=== PATIENT | male | born 1955 | race Caucasian/White ===

== ENCOUNTER 2018-03-06 00:22 | Inpatient (IN) | payer OTHER ==
[2018-03-06] VITALS (16 sets, daily range): BP systolic 103–155; BP diastolic 56–97
[~2018-03-06] VITALS: Ht 170.2 cm; Wt 86.6 kg
[2018-03-06 00:52] LABS: ABSOLUTE BASOPHILS 0.1 thou/uL (0.0-0.2); ABSOLUTE EOSINOPHILS 0.1 thou/uL (0.0-0.7); ABSOLUTE LYMPHOCYTES 1.9 thou/uL (0.8-5.3); ABSOLUTE MONOCYTES 0.9 thou/uL (0.0-1.2); ABSOLUTE NEUTROPHILS 6.6 thou/uL (1.6-8.1); BASOPHILS 0.7 %; EOSINOPHILS 1.5 %; HEMATOCRIT 41.7 % (42.0-52.0); HEMOGLOBIN 14.2 gm/dL (14.0-18.0); LYMPHOCYTES 19.8 %; MCH 31.1 pg (26.0-34.0); MCV 91.7 fL (80.0-100.0); MONOCYTES 9.1 %; MPV 7.8 fl. (7.2-11.1); NUCLEATED RBCS 0 /100WBC; PLATELET COUNT* 252 thou/uL (150-400); POLYS 68.9 %; RBC 4.55 mil/uL (4.50-6.00); RDW-CV 12.8 % (10.5-14.5); WBC 9.6 thou/uL (4.0-11.0)
[2018-03-06 01:05] LABS: ANION GAP 10 mmol/L (7-16); BUN 25 mg/dL (7-18); CALCIUM 8.9 mg/dL (8.5-10.1); CHLORIDE 105 mmol/L (98-107); CO2 27 mmol/L (21-32); CREATININE 1.6 mg/dL (0.6-1.3); GLUCOSE 163 mg/dL (70-99); POTASSIUM 3.7 mmol/L (3.5-5.1); SODIUM 142 mmol/L (136-145)
[2018-03-06 01:07] LABS: PROTIME 9.8 Seconds (9.20-11.50)
[2018-03-06 01:16] LABS: ALBUMIN 3.6 g/dL (3.4-5.0); ALKALINE PHOSPHATASE 58 U/L (46-116); NT-PRO BRAIN NAT PEPTIDE 18 pg/mL (<300); SGOT 27 U/L (15-37); SGPT 37 U/L (30-65); TOTAL BILIRUBIN 0.2 mg/dL (<0.1-1.0); TOTAL PROTEIN 7.1 g/dL (6.4-8.2); TROPONIN-I LEVEL <0.06 ng/mL (<0.06)
--- NOTE | 2018-03-06 03:00 | NUR ---
PATIENT ARRIVED TO THE UNIT @240. PT VS WNL. DR. LANCASTER IN ROOM. PT HAS ACHING CHEST PAIN OF 2-3. RIGHT GROIN SITE HAS MINIMAL DRAINAGE. PULSES 2+, CAPILLARY REFILL <3, PT LEG KEPT STRAIGHT. RECIEVED BEDSIDE REPORT. SPOKE WITH HIS @ BEDSIDE. UPDATED ON CARE OF PLAN, SHE VOICED UNDERSTANDING. WILL CONTINUE TO MONITOR CLOSELY.
[2018-03-06 05:57] LABS: ABSOLUTE LYMPHOCYTES 1.1 thou/uL (0.8-5.3); EOSINOPHILS 0.1 %; HEMOGLOBIN 13.1 gm/dL (14.0-18.0); NUCLEATED RBCS 0 /100WBC; PLATELET COUNT* 242 thou/uL (150-400)
[2018-03-06 05:59] LABS: ABSOLUTE BASOPHILS 0.1 thou/uL (0.0-0.2); ABSOLUTE MONOCYTES 0.9 thou/uL (0.0-1.2); ABSOLUTE NEUTROPHILS 8.9 thou/uL (1.6-8.1); BASOPHILS 0.5 %; MCH 30.9 pg (26.0-34.0); MCHC 33.7 g/dL (28.0-37.0); MCV 91.8 fL (80.0-100.0); MONOCYTES 8.3 %; MPV 7.6 fl. (7.2-11.1); POLYS 81.1 %; RBC 4.24 mil/uL (4.50-6.00); RDW-CV 12.7 % (10.5-14.5)
[2018-03-06 06:06] LABS: ANION GAP 10 mmol/L (7-16); BUN 25 mg/dL (7-18); CALCIUM 9.2 mg/dL (8.5-10.1); CHLORIDE 106 mmol/L (98-107); CO2 24 mmol/L (21-32); CREATININE 1.1 mg/dL (0.6-1.3); GLUCOSE 137 mg/dL (70-99); POTASSIUM 4.1 mmol/L (3.5-5.1); SODIUM 140 mmol/L (136-145)
[2018-03-06 06:13] LABS: ALBUMIN 3.3 g/dL (3.4-5.0); ALKALINE PHOSPHATASE 51 U/L (46-116); CHOLESTEROL 226 mg/dL (<200); HDL CHOLESTEROL 41 mg/dL (>40); LDL CHOLESTEROL 130 mg/dL (<100); SGOT 305 U/L (15-37); SGPT 64 U/L (30-65); TC:HDL 5.5 Ratio (Not establshd); TOTAL BILIRUBIN 0.3 mg/dL (<0.1-1.0); TOTAL PROTEIN 6.5 g/dL (6.4-8.2); TRIGLYCERIDE 278 mg/dL (<150); VLDL 56 mg/dL (<40)
[2018-03-06 06:36] LABS: SERUM ASSESSMENT Clear
--- NOTE | 2018-03-06 07:44 | NUR ---
PATIENT CONTINUES TO PROGRESS TOWARDS GOALS. VOICED NO PAIN. RIGHT GROIN SITE INTACT, HEMORRHAGE FREE, PULSES 2+. PT HAS NO VOICED CONCERNS AT THIS TIME. URINE OUTPUT ADEQUATE. BP AND HR HAVE BEEN RUNNING LOW. HR 58-60. PT CONTINUES WITH NS @ 100. ANGIO OFF. WILL CONTINUE TO MONITOR.
--- NOTE | 2018-03-06 10:12 | NUR ---
AT 0900 PT OFF BEDREST. UPON STARTING TO MOVE PT HAD 20 BEAT RUN OF VTACH. PT ASSYMPTOMATIC. CARDIOLOGY NOTIFIED. AFTER SITTING IN CHAIR PT C/O OF FEELING DIZZY AND OF VISUAL DISTURBANCES. HR 49-50. CARDIOLOGY NOTIFIED. NO ORDERS RECEIVED AT THIS TIME. PT PLACED BACK INTO BED WITH HEAD LOWERED AROUND 45 DEGREES. PT REPORTS FEELING BETTER. WILL CONTINUE TO MONITOR. CARDIOLOGY ORDERS TO HOLD BETA BLOCKERS.
--- NOTE | 2018-03-06 10:40 | EKG ---
[place] [address] ELECTROCARDIOGRAM REPORT Name: CECELIA CARMONA Room: [address] IN .R.#: [id number] Admission: 03/06/18 Attend Phys: Celestine Mullen MD, Discharge: Date of : 57 Report #: [id number] THIS REPORT FOR: //name// [facility] ED Test Date: 2018-03-06 Test Time: 00:35:54 Pat Name: CECELIA CARMONA Department: Room: Gender: M Rental Sales Representative: : 1955 Requested By: Betina Humphrey Order Number: [id number] MD: Bhanu Maier Measurements Intervals Mobile Rate: 65 P: 71 DC: 194 QRS: 40 QRSD: 96 T: 84 QT: 374 QTc: 389 Interpretive Statements Sinus rhythm Inferoposterior infarct, acute (RCA) Lateral leads are also involved Probable RV involvement, suggest recording right precordial leads No previous ECG available for comparison Electronically Signed On 03-06-2018 10:40:37 CDT by Bhanu Maier [email or web address] <ELECTRONICALLY SIGNED> By: Bhanu Maier MD, [facility] 03/06/18 1040 0035 0035 Bhanu Maier MD, [facility] /EPI
--- NOTE | 2018-03-06 10:41 | EKG ---
[place] [address] ELECTROCARDIOGRAM REPORT Name: CCEELIA CARMONA Edgar Room: [address] ADM IN M.R.#: [id number] Admission: 03/06/18 Attend Phys: Celestine Mullen MD, Discharge: Date of : 57 Report #: [id number] THIS REPORT FOR: //name// [facility] Test Date: 2018-03-06 Test Time: 07:37:32 Pat Name: CECELIA CARMONA Department: Room: [address] Gender: M Train Engineer: [facility] : 1955 Requested By: Celestine Mullen Order Number: [id number] Reading MD: Bhanu Maier Measurements Intervals [place] Rate: 58 P: 51 SD: 191 QRS: -43 QRSD: 94 T: 58 QT: 409 QTc: 402 Interpretive Statements Sinus rhythm Left axis deviation Abnormal R-wave progression, early transition Nonspecific T abnrm, anterolateral leads ST elevation, consider anterior injury Electronically Signed On 03-06-2018 10:41:24 CDT by Bhanu Maier [email or web address] <ELECTRONICALLY SIGNED> By: Bhanu Maier MD, [facility] 03/06/18 1041 0737 Bhanu Maier MD, [facility] /EPI
--- NOTE | 2018-03-06 19:03 | NUR ---
CARVEDILOL HELD HR IN 50'S. PT SITTING IN CHAIR THIS EVENING. MYNOR ALVARADO. PT TOLERATING HEART HEALTHY DIET. PT C/O OF HEADACHE THIS AFTERNOON 10/22. TYLENOL ADMININSTERED PER EMAR. REASSESSMENT PAIN 0.
--- NOTE | 2018-03-06 20:10 | NUR ---
ASSUMED CARE OF PT FROM TOMASZ PLATT; PT A+O*4, SITTING UP IN BED, NO APPARENT DISTRESS. SATS 97 RA, BP NORMOTENSIVE, HR 50s, R GROIN DRSG C/D/I. SITE BRUISED, NO EDEMA, SOFT AND SUPPLE. PEDAL PULSES 2+. ABD ROUND AND FIRM, PT STATES HE FEELS HE MIGHT BE GETTING CONSTIPATED. CALL LIGHT IN REACH.
[2018-03-07] VITALS (14 sets, daily range): BP systolic 90–118; BP diastolic 9–61
--- NOTE | 2018-03-07 08:53 | NUR ---
9435 ASSUMED CARE OF PATIENT. SEE DOCUMENTED ASSESSMENT AND GROIN CHARTING.SINUS GIO
--- NOTE | 2018-03-07 08:53 | NUR ---
0800 DR HERNANDES TO SEE PATIENT. PLAN IS FOR DISCHARGE THIS AFTERNOON
[2018-03-07] MEDS ORDERED: NITROGLYCERIN0.4 MG SUBLING (09:15)
[2018-03-07] MEDS ORDERED: ATORVASTATIN CA40 MG PO (09:17)
[2018-03-07] MEDS ORDERED: EFFIENT10 MG PO (09:19)
[2018-03-07] MEDS ORDERED: LISINOPRIL5 MG PO (09:20)
[2018-03-07] MEDS ORDERED: ASPIR 8181 MG PO (09:21)
--- NOTE | 2018-03-07 11:26 | 2DMMODE ---
[place] [address] 2 D/M-MODE ECHOCARDIOGRAM Name: CECELIA CARMONA Room: 006-P [facility] IN [facility]#: [id number] Admission: 03/06/18 Attend Phys: Eva Stone Discharge: Date of : 57 Date of Service: 03/07/18 1126 Report #: [id number] THIS REPORT FOR: //name// APPROVED REPORT Study performed: 03/07/2018 09:14:51 EXAM: Comprehensive 2D, Doppler, and color-flow Echocardiogram Patient Location: In-Patient Room #: 006 Status: routine BSA: 1.98 HR: 57 bpm BP: 110/59 mmHg Rhythm: NSR Other Information Study Quality: Good Indications Acute OH 2D Dimensions LVEF(%): 81.58 (>50%) IVSd: 12.65 (7-11mm) LVOT Diam: 21.22 (18-24mm) LVDd: 46.70 mm PWd: 10.77 (7-11mm) Ascending Ao: 35.05 (22-36mm) LVDs: 23.23 (25-40mm) Aortic Root: 32.97 mm Larson's LVEF: 81.58 % Volumes Left Atrial Volume (Systole) LA ESV Index: 32.80 mL/m2 Aortic Valve AoV Peak Duane.: 1.69 m/s AO Peak Gr.: 11.49 mmHg LVOT Max P.02 mmHg AO Mean Gr.: 5.63 mmHg LVOT Mean P.38 mmHg LVOT Max V: 1.32 m/s AO V2 VTI: 29.12 cm LVOT Mean V: 0.84 m/s JOCELIN (VTI): 3.19 cm2 LVOT V1 VTI: 26.30 cm Mitral Valve E/A Ratio: 1.64 [place] [address] 2 D/M-MODE ECHOCARDIOGRAM Name: CECELIA CARMONA Room: 006-P [facility] IN .R.#: [id number] Admission: 03/06/18 Attend Phys: Eva Stone Discharge: Date of : 57 Date of Service: 03/07/18 1126 Report #: [id number] MV Decel. Time: 211.34 ms MV E Max Duane.: 0.86 m/s MV PHT: 61.29 ms MVA (PHT): 3.59 cm2 TDI E/Lateral E': 9.56 E/Medial E': 9.56 Medial E' Duane.: 0.09 m/s Lateral E' Duane.: 0.09 m/s Pulmonary Valve PV Peak Duane.: 1.31 m/s PV Peak Gr.: 6.84 mmHg Left Ventricle The left ventricle is normal size. There is normal LV segmental wall motion. Mild concentric left ventricular hypertrophy. Left ventricular systolic function is normal. LVEF is >70%. Transmitral Doppler flow pattern suggests impaired LV relaxation. Right Ventricle Right ventricle is mildly dilated. The right ventricular systolic function is normal. Atria Left atrium is mildly dilated. Right atrium is mildly dilated. Aortic Valve The aortic valve is normal in structure. No aortic regurgitation is present. There is no aortic valvular stenosis. Mitral Valve The mitral valve is normal in structure. Mild mitral regurgitation. No evidence of mitral valve stenosis. Tricuspid Valve The tricuspid valve is normal in structure. Unable to assess PA pressure. Trace tricuspid regurgitation. Pulmonic Valve The pulmonary valve is normal in structure. There is no pulmonic valvular regurgitation. Great Vessels The aortic root is normal in size. IVC is normal in size and collapses with >50% [place] [address] 2 D/M-MODE ECHOCARDIOGRAM Name: CECELIA CARMONA Room: [address] IN [facility].#: [id number] Admission: 03/06/18 Attend Phys: Eva Stone Discharge: Date of : 57 Date of Service: 03/07/18 1126 Report #: [id number] Pericardium There is no pericardial effusion. <Conclusion> Right ventricle is mildly dilated. Left atrium is mildly dilated. Right atrium is mildly dilated. Mild mitral regurgitation. <ELECTRONICALLY SIGNED> By: Smith Chicas MD, FACC 03/07/18 1126 1126 112 Smith Chicas MD, FACC /INF
--- NOTE | 2018-03-07 12:23 | NUR ---
DISCHARGE EDUCATION COMPLETED. SINUS GIO PERSISTS
--- NOTE | 2018-03-07 13:01 | CARD ---
[address] [address] CARDIAC CATH REPORT Name: CECELIA CARMONA Room: M006-P ADM IN M.R.#: [id number] Admission: 03/06/18 Attend Phys: Celestine Mullen MD, Discharge: Date of : 57 Report #: [id number] THIS REPORT FOR: //name// APPROVED REPORT Study performed: 03/06/2018 00:41:37 Patient Details Patient Status: ED Room #: The patient is a 62 year-old male Event Personnel Celestine Mullen Family Medicine Chair, Margaret Cueva RN Database Software Technician, Jose E Pehlan (R) Monitor, Leanne Shrestha RTR Scrub Procedures Performed PEG Place w/wo Plasty Single CIRC; left heart catheterization and selective coronary artery artery Indication STEMI Risk Factors Hypercholesterolemia, Hypertension Admission/Lab Medications/Medications given during procedure Aspirin, Platelet Aff. Inhib., Angiomax bolus and infusion Procedure Narrative The patient was brought emergently to the Cardiac Catheterization Laboratory and was prepped and draped in a sterile manner. The right femoral was infiltrated with 1% Lidocaine subcutaneous anesthesia. A Matador 6 FR sheath was inserted into the Right Femoral Artery. Coronary angiography was performed using coronary diagnostic catheters. The right coronary system was accessed and visualized with a Diagnostic JR4 catheter. The left coronary system was accessed and visualized with a Diagnostic JL 4 catheter. The left ventricle was accessed and visualized with a Diagnostic Straight Pig catheter. Left ventricular/Aortic Valve gradient assessed via catheter pullback. Pre-demployment femoral angiogram was performed . Closure device was deployed with a Fr Angioseal STS 6Fr. The patient tolerated the procedure well and there were no complications associated with the procedure. There was no hematoma[place] [address] CARDIAC CATH REPORT Name: MATHEWCECELIA Edgar Room: [address] IN [facility]#: [id number] Admission: 03/06/18 Attend Phys: Celestine Mullen MD, Discharge: Date of : 57 Report #: [id number] No Sedation Given Fluoro Time: 11.3 minutes Dose: DAP 380871 cGycm2 2064 mGy Contrast Type and Amount: Visipaque 210 ml Coronary Angiography The patient's coronary anatomy is right dominant. Diagnostic Cath Left Main 0% narrowing LAD 50% mid vessel stenosis Diagonal 1 30% proximal narrowing Circumflex 100% mid vessel occlusion with prominent intraluminal thrombus Right Coronary Dominant vessel with 40% mid vessel narrowing Hemodynamics The aortic pressure is 132/79 mmHg with a mean of 102 mmHg. The left ventricular pressure is 100/4 mmHg with a mean of mmHg. The left ventricular end diastolic pressure is 22 mmHg. PCI Technique Lesion Anticoagulation was achieved with Angiomax. Patient was preloaded with Angiomax IV 13.5 ml. Percutaneous coronary intervention was performed on the mid circumflex artery segment. The lesion stenosis prior to intervention was 100% with CRISS 0 flow. A 6F XB LAD 3.5 Guide Catheter was used to engage the ostium. A IG: ProwaterFlex 180CM Interventional Guidewire was used to cross the lesion. BALLOON DILATION A Balloon catheter Trek RX 2.25 X 12 was inserted and inflated up to 8.00atm for 14seconds. Additional Inflation: 12.00atm for 12seconds. Additional Inflation: 1atm for seconds. STENT DEPLOYMENT A drug-eluting stent Xience Alpine RX 2.75X28 was inserted and inflated up to 12.00atm for 13seconds. Additional Inflation: 15.00atm for 16seconds. POST STENT DEPLOYMENT BALLOON DILATION A Balloon catheter NC Trek RX 3.0 X 12 was inserted and inflated up to 16.00atm for 10seconds. Additional Inflation: 18.00atm for 11seconds. Additional Inflation: 18.00atm for 12[place]. [place] [address] CARDIAC CATH REPORT Name: CECELIA CARMONA Room: [address] [place] [facility]#: [id number] Admission: 03/06/18 Attend Phys: Celestine Mullen MD, Discharge: Date of : 57 Report #: [id number] Final angiography reveals 0 % stenosis with CRISS 3 flow. Conclusion #1 significant coronary artery disease characterized by the following A total occlusion of the mid circumflex with consequent ST segment elevation myocardial infarction B 50% mid LAD narrowing C 40% narrowing of the midportion of the dominant right coronary artery #2 moderate elevation of left ventricular end-diastolic pressure at rest #3 successful percutaneous coronary intervention with deployment of drug-eluting stent at the site of 100% mid circumflex occlusion with 0% residual narrowing CRISS-3 flow to the distal vessel and no residual thrombus noted Recommendations Cardiac Risk Reduction Program Aggressive Medical Therapy Medications Administered Aspirin (any) Prasugrel Diagnostic Cath Approved by: Celestine Mullen MD Date/Time: 03/07/18 at 1259 hrs. <ELECTRONICALLY SIGNED> By: Celestine Mullen MD, FAC 03/07/18 1301 1301 1301Celestine Mullen MD, FACC /INF
--- NOTE | 2018-03-07 14:09 | NUR ---
1405 DISCUSSED HOLDING LISINOPRIL AT HOME FOR BLOOD PRESSURE LESS THAN 100 SYSTOLIC. DISCHARGED PER WHEELCHAIR
--- NOTE | 2018-03-12 18:18 | D ---
[address] [place] [address] [address] DISCHARGE SUMMARY Name: CECELIA CARMONA Room: [address] IN M.R.#: [id number] Admission: 03/06/18 Attend Phys: Celestine Mullen MD, Discharge: 03/07/18 Date of : 57 Report #: [id number] THIS REPORT FOR: //name// CC: [facility] physician/PCP Celestine Mullen DATE OF SERVICE: 03/06/2018 DISCHARGE DIAGNOSES: 1. Acute inferior wall ST segment elevation myocardial infarction. 2. Coronary artery disease. 3. Sinus bradycardia. 4. Hyperlipidemia. CONSULTANTS: None. PROCEDURES: Emergent left heart catheterization with placement of a single drug-eluting stent in the right coronary artery via the femoral approach. HISTORY OF PRESENT ILLNESS: The patient is a 62-year-old white male who came to the Emergency Room complaining of chest pain. The patient is currently not under physician's care. He does have a history of hyperlipidemia and apparently is on any cholesterol lowering drug in the past, but he could not tolerate it. He is currently not on any medications. He does not exercise on regular basis. He had had no significant chest pain in the past. However, he awakened at approximately 11:00 at night on the day of admission with pain in his chest that was unremitting. His drove him to the Emergency Room at [place] where he arrived at about 12 midnight. He was found to be having acute inferior ST segment elevation myocardial infarction. He was seen in emergent basis by my partner, Dr. Mullen and taken directly to the labor trainer. PAST MEDICAL HISTORY: Significant for no major surgical procedures. He does have a history of hyperlipidemia, but no history of hypertension or diabetes. MEDICATIONS: He is on no medications. ALLERGIES: He had no known drug allergies. 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 He does not exercise on a regular basis. He has not smoked for years. He does drink beer occasionally. PHYSICAL EXAMINATION: GENERAL: Revealed a middle-aged male in mild distress. VITAL SIGNS: Blood pressure on admission of 140/80, pulse is 60. He is afebrile. HEENT: [place] [address] DISCHARGE SUMMARY Name: CECELIA CARMONA Room: [address]#: [id number] Admission: 03/06/18 Attend Phys: Celestine Mullen MD, Discharge: 03/07/18 Date of : 57 Report #: [id number] CHEST: Clear to auscultation. CARDIAC: Regular rate and rhythm. There was no significant murmur. ABDOMEN: Soft. EXTREMITIES: Had no edema. DIAGNOSTIC DATA: ECG showed inferior ST segment elevation consistent with acute injury. His chest x-ray showed normal heart size, clear lung shelton. LABORATORY DATA: Sodium 140, fasting blood sugar was 137, SGOT 305. SGPT 64. Troponin on admission was 0.06. White blood cell count 9.6, hemoglobin 14.2. HOSPITAL COURSE: The patient was taken urgently to the labor trainer by my partner, Dr. Mullen at approximately 1:00 a.m. Review of the arteriograms showed the large codominant circumflex was acutely occluded after the first marginal branch. There was a 50% narrowing of the mid LAD and a 50% narrowing of the mid circumflex. Dr. Mullen performed emergent angioplasty and placed a single drug-eluting stent in the circumflex. He was given Angiomax during the procedure. He was loaded with Effient. He tolerated the procedure well. An Angio-Seal was placed in the right femoral artery. A ventriculogram was not performed. He had only mild chest pain after the procedure. He had no significant heart failure. He was noted to be bradycardic and could not tolerate beta jaylen. He also had a 20-beat run of wide complex tachycardia at approximately 6 hours after the procedure, consistent with nonsustained ventricular tachycardia. Prior to discharge, he is up in his room. There is no significant hematoma in the right groin after the Angio-Seal was placed. Additional workup, he did have an echocardiogram done prior to discharge, the results are pending. Additional lab work included a peak troponin of 127.6, cholesterol 226, triglyceride 278, HDL 41, LDL 130. Repeat hemoglobin was 13.1 and there was no significant drop in platelet count. Follow up ECG after the procedure showed a sinus rhythm, left axis, T-wave inversion in the lateral leads. The patient was seen by cardiac rehabilitation prior to discharge. He was discharged and had a blood pressure of 120/70, pulse was 60. He was afebrile. He was discharged on aspirin 81 mg a day, Lipitor 40 mg a day. He was not given a beta jaylen because of bradycardia, lisinopril 5 mg a day for his coronary artery disease, Effient 10 mg a day and he was given nitroglycerin to take as needed for chest pain. It was recommended he start an exercise program, maintain low fat diet. He was to contact my office if he had bleeding, recurrent chest pain. He is scheduled to see my nurse practitioner in 1 week. He plans to enroll in cardiac rehabilitation. He was given 2 weeks off from work. He is scheduled to see Dr. Mullen in the Cardiology Clinic in 6 weeks. He was felt to have a guarded prognosis because of his coronary artery disease. [address] [place] [address] [address] DISCHARGE SUMMARY Name: CECELIA CARMONA Room: 006-P [facility] IN M.R.#: [id number] Admission: 03/06/18 Attend Phys: Celestine Mullen MD, Discharge: 03/07/18 Date of : 57 Report #: [id number] At the time of discharge, he had blood pressure of 100/60, pulse of 50 and he is afebrile. <ELECTRONICALLY SIGNED> By: Bhanu Maier MD, FACC 03/12/18 1818 0801 [id number] Maier MD, FACC /nt
--- NOTE | 2018-03-21 17:06 | H ---
[address] [address] HISTORY AND PHYSICAL Name: CECELIA CARMONA NURYS Room: [address] IN M.R.#: [id number] Admission: 03/06/18 Attend Phys: Celestine Mullen MD, Discharge: 03/07/18 Date of : 57 Report #: [id number] THIS REPORT FOR: //name// CC: [facility] physician/PCP Celestine Mullen DATE OF SERVICE: 03/06/2018 HISTORY OF PRESENT ILLNESS: The patient is a 62-year-old male who awakened this evening at approximately 11:00 with severe chest pain, which was unrelenting. He presented to the ER with this finding. He had electrocardiographic evidence of acute inferoposterior ST-segment elevation myocardial infarction. There is a history of hypertension and hypercholesterolemia. He denies diabetes or cigarette smoking. He is unaware of family history of cardiac disease. He denies significant antecedent cardiopulmonary problems. He is taking no cardiac medicines at present. PAST MEDICAL HISTORY: Remarkable for mild weight excess. PHYSICAL EXAMINATION: GENERAL: Demonstrates an acutely distressed middle-aged male. VITAL SIGNS: Blood pressure is 110/70, pulse rate is 74 and respirations are 18 per minute. NECK: Jugular venous pressure is normal. CHEST EXAMINATION: Clear. CARDIAC EXAMINATION: Reveals normal first and second heart sounds with a question of an S4 gallop. ABDOMEN: Mildly obese. EXTREMITIES: Without edema with intact femoral, pedal and radial pulses. LABORATORY DATA: EKG reveals acute inferoposterior ST-segment elevation myocardial infarction. IMPRESSION: 1. Acute ST-segment elevation myocardial infarction, which is inferoposterior in location. 2. Coronary artery disease. 3. Hypertension. 4. Hypercholesterolemia. RECOMMENDATIONS: We will have an urgent catheterization with a strong consideration of intervention contingent on the results of the study. This has been discussed with the patient. [place] [address] HISTORY AND PHYSICAL Name: MATHEWCECELIA NURYS Room: [address]#: [id number] Admission: 03/06/18 Attend Phys: Celestine Mullen MD, Discharge: 03/07/18 Date of : 57 Report #: [id number] 03/06/2018. The patient is going to the ICU. Critical care time is 35 minutes, from 01:45 to 02:20 on 03/06/2018. <ELECTRONICALLY SIGNED> By: Celestine Mullen MD, FACC 03/21/18 1706 0222 [id number] Mullen MD, FAC /nt
== END 2018-03-07 14:15 | disposition home or self-care (01) | DRG 246 ==
LOC: M.CL 00:22 → M.ERS 00:22 → M.CL 01:23 → M.ICU 02:45 → M.TBA-CV 02:45 → M.ICU 02:58
PROVIDERS: Emergency Medicine; ADMIT Internal Medicine
PROC: B2111ZZ Fluoroscopy of Multiple Coronary Arteries using Low Osmolar Contrast (ICD-10-PCS; principal; 2018-03-06)
PROC: 027034Z Dilation of Coronary Artery, One Artery with Drug-eluting Intraluminal Device, Percutaneous Approach (ICD-10-PCS; principal; 2018-03-06)
PROC: 4A023N7 Measurement of Cardiac Sampling and Pressure, Left Heart, Percutaneous Approach (ICD-10-PCS; principal; 2018-03-06)
DX: I21.19 ST elevation (STEMI) myocardial infarction involving other coronary artery of inferior wall (principal); N17.0 Acute kidney failure with tubular necrosis; I50.32 Chronic diastolic (congestive) heart failure; I21.29 ST elevation (STEMI) myocardial infarction involving other sites; E78.00 Pure hypercholesterolemia, unspecified; I25.10 Atherosclerotic heart disease of native coronary artery without angina pectoris; R00.1 Bradycardia, unspecified; E78.5 Hyperlipidemia, unspecified; I11.0 Hypertensive heart disease with heart failure

== ENCOUNTER → 2018-03-08 | Outpatient (CLI) | payer OTHER ==
[~2018-03-08] MED LIST: ASPIR 8181 MG PO; ATORVASTATIN CA40 MG PO; EFFIENT10 MG PO; LISINOPRIL5 MG PO; NITROGLYCERIN0.4 MG SUBLING
[2018-03-08 11:21] LABS: ALBUMIN 3.3 g/dL (3.4-5.0); CALCIUM 8.8 mg/dL (8.5-10.1); CREATININE 1.1 mg/dL (0.6-1.3); POTASSIUM 3.9 mmol/L (3.5-5.1); TOTAL BILIRUBIN 0.4 mg/dL (<0.1-1.0); TOTAL PROTEIN 6.8 g/dL (6.4-8.2)
== END ==
LOC: M.LAB 10:47
PROVIDERS: Nurse Practitioner
DX: R74.0 Nonspecific elevation of levels of transaminase and lactic acid dehydrogenase [LDH] (principal)

== ENCOUNTER → 2019-01-09 | Outpatient (CLI) | payer OTHER ==
--- NOTE | 2019-01-09 16:34 | CARDNUC ---
[place] [address] CARDIAC NUCLEAR IMAGING REPORT Name: CECELIA CARMONA Room: [facility]#: [id number] Admission: 01/09/19 Attend Phys: Eva Stone Discharge: Date of : 57 Date of Service: 01/09/19 1634 Report #: [id number] THIS REPORT FOR: //name// APPROVED REPORT Study performed: 01/09/2019 15:00:12 Exam: Nuclear Stress Test Indication: CAD Patient Location: Out-Patient Ht: 5 ft 8 in Wt: 174 lbs BSA: 1.93 m2 BMI: 26.45 NM EXAM: Myocardial Perfusion REST/STRESS Imaging Protocol: Rest Tc-99m/Stress Tc-99m 1 day Resting Data Rest SPECT myocardial perfusion imaging was performed in supine position 30 minutes following the intravenous injection of 10.4 mCi of Tc-99m Sestamibi. Time of rest injection: 13:15 The images were gated to evaluate regional wall motion and calculate left ventricular ejection fraction. Administration Route: IV Administration Site: Right Hand Pharmacologic Stress Pharmacologic stress test was performed by injecting Regadenoson 0.4 mg IV push followed by the intravenous injection of 33.4 mCi of Tc-99m Sestamibi. Time of stress injection: 15:10 Administration Route: IV Administration Site: Right Hand Heart Rate at time of stress injection: 152 bpm. Gated Stress SPECT was performed 30 minutes after stress injection. The images were gated to evaluate regional wall motion and calculate left ventricular ejection fraction. Prone imaging was performed. Study Quality Study: Good Artifact: [place] [address] CARDIAC NUCLEAR IMAGING REPORT Name: CECELIA CARMONA Room: [facility]#: [id number] Admission: 01/09/19 Attend Phys: Eva Stone Discharge: Date of : 57 Date of Service: 01/09/19 1634 Report #: [id number] Study Data At rest, the left ventricular ejection fraction was 62%.. Post stress, the left ventricular ejection was 63%.. SSS: 11 SRS: 6 SDS: 5 TID = 1.00. Perfusion Review of SPECT images at rest demonstrate a medium sized ,severe intensity inferolateral defect and normal perfusion in other segments. When imaged following vasodilator stress the defect is noted to be partially reversible. When imaged prone the defect persists indicating a prior inferolateral myocardial infarction with mild ischemia Images were reviewed using [employer]leris. Wall Motion lateral hypokinesis Nuclear Conclusion ECG Findings: negative for ischemia Clinical Findings: negative for ischemia Nuclear Findings: negative for ischemia Exercise Capacity: normal Left Ventricular Function: normal Risk Study: moderate Evidence of prior inferolateral ND, without ischemia.Normal EF. Moderate risk study ,with mild ischemia. <ELECTRONICALLY SIGNED> By: Fausto Owusu MD, FACC 01/09/19 1634 1634 1634 Fausto Owusu MD, FACC /INF
== END ==
LOC: M.NUC 05-16 12:38
DX: I25.10 Atherosclerotic heart disease of native coronary artery without angina pectoris (principal); I21.21 ST elevation (STEMI) myocardial infarction involving left circumflex coronary artery

== ENCOUNTER → 2019-03-12 | Outpatient (CLI) | payer OTHER ==
--- NOTE | 2019-03-12 15:32 | 2DMMODE ---
[place] [address] 2 D/M-MODE ECHOCARDIOGRAM Name: CECELIA CARMONA Room: [facility]#: [id number] Admission: 03/12/19 Attend Phys: Eva Stone Discharge: Date of : 57 Date of Service: 03/12/19 1532 Report #: [id number] THIS REPORT FOR: //name// APPROVED REPORT Study performed: 03/12/2019 09:50:42 EXAM: Comprehensive 2D, Doppler, and color-flow Echocardiogram Patient Location: Out-Patient BSA: 1.96 HR: 74 bpm BP: 110/60 mmHg Other Information Study Quality: Good Indications CAD Hypertension/HDD 2D Dimensions IVSd: 14.89 (7-11mm) LVOT Diam: 20.22 (18-24mm) LVDd: 44.45 mm PWd: 7.98 (7-11mm) Ascending Ao: 35.13 (22-36mm) LVDs: 29.87 (25-40mm) Aortic Root: 24.99 mm Volumes Left Atrial Volume (Systole) LA ESV Index: 21.80 mL/m2 Aortic Valve AoV Peak Duane.: 1.45 m/s AO Peak Gr.: 8.46 mmHg LVOT Max P.60 mmHg AO Mean Gr.: 4.54 mmHg LVOT Mean P.22 mmHg LVOT Max V: 1.18 m/s AO V2 VTI: 25.39 cm LVOT Mean V: 0.66 m/s JOCELIN (VTI): 3.16 cm2 LVOT V1 VTI: 24.97 cm Mitral Valve E/A Ratio: 0.70 MV Decel. Time: 329.44 ms MV E Max Duane.: 0.48 m/s MV PHT: 95[place]54 [place] [address] 2 D/M-MODE ECHOCARDIOGRAM Name: CECELIA CARMONA Room: [facility]#: [id number] Admission: 03/12/19 Attend Phys: Eva Stone Discharge: Date of : 57 Date of Service: 03/12/19 1532 Report #: [id number] MVA (PHT): 2.30 cm2 TDI E/Lateral E': 4.80 E/Medial E': 5.33 Medial E' Duane.: 0.09 m/s Lateral E' Duane.: 0.10 m/s Pulmonary Valve PV Peak Duane.: 1.19 m/s PV Peak Gr.: 5.71 mmHg Left Ventricle The left ventricle is normal size. There is normal LV segmental wall motion. There is normal left ventricular wall thickness. Left ventricular systolic function is normal. The left ventricular ejection fraction is within the normal range. LVEF is 60%. Grade I - abnormal relaxation pattern. Right Ventricle The right ventricle is normal size. The right ventricular systolic function is normal. Atria The left atrium size is normal. The right atrium size is normal. Aortic Valve Mild aortic valve sclerosis. No aortic regurgitation is present. There is no aortic valvular stenosis. Mitral Valve The mitral valve is normal in structure. There is no mitral valve regurgitation noted. No evidence of mitral valve stenosis. Tricuspid Valve The tricuspid valve is normal in structure. There is no tricuspid valve regurgitation noted. Pulmonic Valve The pulmonary valve is normal in structure. There is no pulmonic valvular regurgitation. Great Vessels The aortic root is normal in size. IVC is normal in size and collapses >50% with inspiration[place] [address] 2 D/M-MODE ECHOCARDIOGRAM Name: CECELIA CARMONA Room: [facility]#: [id number] Admission: 03/12/19 Attend Phys: Eva Stone Discharge: Date of : 57 Date of Service: 03/12/19 1532 Report #: [id number] There is no pericardial effusion. <Conclusion> The left ventricle is normal size. There is normal left ventricular wall thickness. Left ventricular systolic function is normal. The left ventricular ejection fraction is within the normal range. LVEF is 60%. Grade I - abnormal relaxation pattern. The right ventricle is normal size. The left atrium size is normal. Mild aortic valve sclerosis. No aortic regurgitation is present. There is no aortic valvular stenosis. The mitral valve is normal in structure. The tricuspid valve is normal in structure. IVC is normal in size and collapses >50% with inspiration. There is no pericardial effusion. There is normal LV segmental wall motion. <ELECTRONICALLY SIGNED> By: Celestine Mullen MD, [facility] 03/12/19 1532 1532 1532 Celestine Mullen MD, [facility] /INF
== END ==
LOC: M.CRD 09:53
DX: I25.10 Atherosclerotic heart disease of native coronary artery without angina pectoris (principal); I10 Essential (primary) hypertension; E78.5 Hyperlipidemia, unspecified

== ENCOUNTER → 2020-03-18 | Outpatient (CLI) | payer OTHER ==
[2020-03-18 10:14] LABS: ABSOLUTE BASOPHILS 0.1 thou/uL (0.0-0.2); ABSOLUTE EOSINOPHILS 0.1 thou/uL (0.0-0.7); ABSOLUTE LYMPHOCYTES 1.2 thou/uL (0.8-5.3); ABSOLUTE MONOCYTES 0.9 thou/uL (0.0-1.2); ABSOLUTE NEUTROPHILS 5.3 thou/uL (1.6-8.1); BASOPHILS 0.8 %; EOSINOPHILS 1.2 %; HEMATOCRIT 44.6 % (42.0-52.0); HEMOGLOBIN 15.3 gm/dL (14.0-18.0); LYMPHOCYTES 16.2 %; MCH 31.7 pg (26.0-34.0); MCHC 34.4 g/dL (28.0-37.0); MCV 92.4 fL (80.0-100.0); MONOCYTES 11.4 %; MPV 7.6 fl. (7.2-11.1); NUCLEATED RBCS 0 /100WBC; PLATELET COUNT* 228 thou/uL (150-400); POLYS 70.4 %; RBC 4.83 mil/uL (4.50-6.00); RDW-CV 12.7 % (10.5-14.5); WBC 7.5 thou/uL (4.0-11.0)
[2020-03-18 10:31] LABS: ALKALINE PHOSPHATASE 62 U/L (46-116); ANION GAP 7 mmol/L (7-16); BUN 15 mg/dL (7-18); CALCIUM 8.7 mg/dL (8.5-10.1); CHLORIDE 103 mmol/L (98-107); CHOLESTEROL 175 mg/dL (<200); CO2 28 mmol/L (21-32); CREATININE 1.1 mg/dL (0.6-1.3); GLUCOSE 101 mg/dL (70-99); HDL CHOLESTEROL 53 mg/dL (>40); LDL CHOLESTEROL 93 mg/dL (<100); POTASSIUM 3.9 mmol/L (3.5-5.1); SGOT 32 U/L (15-37); SGPT 64 U/L (30-65); SODIUM 138 mmol/L (136-145); TC:HDL 3.3 Ratio (Not establshd); TOTAL BILIRUBIN 0.5 mg/dL (<0.1-1.0); TOTAL PROTEIN 7.6 g/dL (6.4-8.2); TRIGLYCERIDE 145 mg/dL (<150); VLDL 29 mg/dL (<40)
[2020-03-18 10:33] LABS: SERUM ASSESSMENT Clear
== END ==
LOC: M.LAB 09:54
PROVIDERS: ATTEND Nurse Practitioner
DX: I25.10 Atherosclerotic heart disease of native coronary artery without angina pectoris (principal); E78.00 Pure hypercholesterolemia, unspecified

== ENCOUNTER → 2021-04-07 | Outpatient (CLI) | payer OTHER ==
[~2021-04-07] MED LIST changes: +COMBIGAN EYE DR10 ML OPHTHALMIC; +XALATAN2.5 ML OPHTHALMIC
--- NOTE | 2021-04-07 17:00 | CARDNUC ---
[place] [address] CARDIAC NUCLEAR IMAGING REPORT Name: CECELIA CARMONA Room: [facility]#: [id number] Admission: 04/07/21 Attend Phys: Eva Stone Discharge: Date of : 57 Date of Service: 04/07/21 1700 Report #: [id number] THIS REPORT FOR: cc: FAM - No family physician/PCP FAM - No family physician/PCP Smith Chicas MD [facility] ~ APPROVED REPORT Imaging Protocol: Rest Tc-99m/Stress Tc-99m 1 day Study performed: 04/07/2021 12:45:00 Indication: CAD s/p AL, CAD s/p PCI, sinus bradycardia, HTN. Patient Location: Out-Patient Stress Nurse: GIULIA Beth Tech:RUFINA Koehler Ht: 5 ft 8 in Wt: 180 lbs BSA: 1.95 m2 BMI: 27.36 Medical History Medical History: Angina, CAD s/p AL, CAD s/p stent, sinus bradycardia, HTN, HLD, past smoker. Medications: ASA 81 MG, ATORVASTATIN, NTG. Allergies: No known drug allergies Cardiac Risk Factors: Age, HTN, Hyperlipidemia, Past Smoker, SINUS BRADYCARDIA. Previous Cardiac Procedures: Myocardial infarction, PCI. Pretest Chest Pain Characteristics: No chest pain Exercise History: Physically active Physical Disabilities: NONE VOICED. Meds Held (24 hrs): NTG. Resting Data Rest SPECT myocardial perfusion imaging was performed in supine position 30 minutes following the intravenous injection of 11.0 mCi of Tc-99m Sestamibi. Time of rest injection: 1310 Date: 04/07/2021 The images were gated to evaluate regional wall motion and calculate left ventricular ejection fraction. Administration Route: IV Administration Site: Right Hand Exercise Stress At peak stress, the patient was injected intravenously with 30.0m[place] [address] CARDIAC NUCLEAR IMAGING REPORT Name: CECELIA CARMONA Room: [facility]#: [id number] Admission: 04/07/21 Attend Phys: Eva Stone Discharge: Date of : 57 Date of Service: 04/07/21 1700 Report #: [id number] Tc-99m Sestamibi. Time of stress injection: 1510 Date: 04/07/2021 Administration Route: IV Administration Site: Right Hand Gated Stress SPECT was performed 30 minutes after stress injection. The images were gated to evaluate regional wall motion and calculate left ventricular ejection fraction. Prone imaging was performed. Stress Test Details Stress Test: Exercise stress testing was performed using a Ole protocol. HR Max Heart Rate (APMHR): 156 bpm Resting HR: 47 bpm Target HR (85% APMHR): 132 bpm Max HR Achieved: 154 bpm % of APMHR: 98 Recovery HR: 77 bpm BP Resting BP: 136/87 mmHg Max BP: 260/92 mmHg Recovery BP: 163/99 mmHg ECG Resting ECG: Sinus Rhythm Stress ECG: Sinus Tachycardia ST Change: None Arrhythmia: None Recovery ECG: Sinus Rhythm Recovery ST Change: None Recovery Arrhythmia: None Clinical Reason for Termination: Completed protocol, Maximal effort, Patient Request. Stress Symptoms: DYSPNEA, MILD LEG FATIGUE. Exercise duration: 10 min 42 sec Exercise capacity: 12.87 METs Overall Exercise Capacity for Age: Superior The patient tolerated standard Ole protocol exercise without significant cardiac complaint. Nurse Comments Patient completed treadmill nuclear stress test to beginning of stage 4, target HR achieved. Patient was stable and [place] [address] CARDIAC NUCLEAR IMAGING REPORT Name: CECELIA CARMONA Room: [facility]#: [id number] Admission: 04/07/21 Attend Phys: Eva Stone Discharge: Date of : 57 Date of Service: 04/07/21 1700 Report #: [id number] when escorted to nuclear medicine for imaging. Exercise capacity - superior. Stress ECG Conclusion The baseline twelve-lead EKG shows sinus rhythm without significant ST segment or T wave abnormality. EKGs obtained during and post exercise show sinus rhythm and sinus tachycardia with no significant ST segment or T wave changes when compared to baseline. There were no stress-induced arrhythmias. Study Quality Study: Good Study Data At rest, the left ventricular ejection fraction was 70%.. Post stress, the left ventricular ejection was 66%.. TID = 0.91. Perfusion Perfusion images show a fixed defect involving the basal portion the inferior wall. No other significant fixed or reversible defects were identified. Wall Motion Global LV systolic function is preserved. There is mild hypokinesis of the basal inferior wall. Nuclear Conclusion ECG Findings: negative for ischemia Clinical Findings: negative for ischemia Nuclear Findings: negative for ischemia Exercise Capacity: normal Left Ventricular Function: Preserved Risk Study: low Perfusion images showed no defect to suggest ischemia. There is a small size moderate intensity defect of the inferior wall suggesting prior inferior wall infarct. Global LV systolic function appears well preserved. This is a low risk study. <Conclusion> The baseline twelve-lead EKG shows sinus rhythm without significant ST segment or T wave abnormality. EKGs obtained during and post exercise show sinus rhythm and sinus tachycardia [place] [address] CARDIAC NUCLEAR IMAGING REPORT Name: CECELIA CARMONA [facility] [id number] Admission: 04/07/21 Attend Phys: Eva Stone Discharge: Date of : 57 Date of Service: 04/07/21 1700 Report #: [id number] segment or T wave changes when compared to baseline. There were no stress-induced arrhythmias. <ELECTRONICALLY SIGNED> By: Smith Chicas MD, FACC 04/07/211699 99 99 Smith Chicas MD, FACC /INF
== END ==
LOC: M.NUC 04-01 08:00 → M.CRD 04-01 08:00 → M.NUC 04-02 14:00
PROVIDERS: ATTEND Internal Medicine
DX: I25.10 Atherosclerotic heart disease of native coronary artery without angina pectoris (principal); I21.21 ST elevation (STEMI) myocardial infarction involving left circumflex coronary artery; I10 Essential (primary) hypertension; E78.00 Pure hypercholesterolemia, unspecified